=== PATIENT | female | born 1985 | race Caucasian/White ===

== ENCOUNTER → 2021-04-08 15:40 | Outpatient (CLI) | payer OTHER, SELFPAY ==
--- NOTE | ~2021-04-08 | US_ITS ---
EXAMINATION: US thyroid DATE: 04/08/2021 15:56 INDICATION: Euthyroid sick syndrome. TECHNIQUE: Multiple ultrasound images of the thyroid were obtained. COMPARISON: None. FINDINGS: The right thyroid lobe measures 4.9 x 1.7 x 1.5 cm. The left thyroid lobe measures 4.4 x 1.5 x 1.6 c m. The thyroid demonstrates coarsened echotexture and increased vascularity. In the left thyroid lobe , there is a 1.4 cm predominantly solid, isoechoic, [id number] nodule with smooth margin without echogenic foci (TI-RADS TR3). IMPRESSION: 1. Heterogeneous, hypervascular thyroid, likely chronic lymphocytic (Alexandru) thyroiditis. 2. Left thyroid nodule, likely not clinically significant. No follow-up is needed. Reviewed, dictated and finalized at location A. CLEANER IMPRESSION: 1. Heterogeneous, hypervascular thyroid, likely chronic lymphocytic (Alexandru) thyroiditis. 2. Left thyroid nodule, likely not clinically significant. No follow-up is need ed.
== END ==
PROVIDERS: PCP Physician Assistant; Visit Provider Physician Assistant
DX: E07.81 Sick-euthyroid syndrome (principal)
CPT/HCPCS: 76536

== ENCOUNTER → 2021-05-29 08:00 | Outpatient (CLI) | payer OTHER, SELFPAY ==
[2021-05-29 21:12] LABS: SARS-CoV-2 RNA PCR Negative
== END ==
PROVIDERS: PCP Physician Assistant; Visit Provider Physician Assistant
DX: R68.89 Other general symptoms and signs (principal); Z20.822 Contact with and (suspected) exposure to COVID-19
CPT/HCPCS: C9803; U0003; U0005

== ENCOUNTER 2022-09-29 07:29 | Outpatient (CLI) | payer OTHER, SELFPAY ==
--- NOTE | ~2022-09-29 | US_ITS ---
EXAMINATION: US thyroid DATE: 09/29/2022 08:11 INDICATION: Thyroid nodule. TECHNIQUE: Multiple ultrasound images of the thyroid were obtained. COMPARISON: Ultrasound 04/08/2021 FINDINGS: The right thyroid lobe measures 4.3 x 1.2 x 1.3 cm. The left thyroid lobe measures 4.0 x 1.4 x 1.5 c m. The thyroid is diffusely hypervascular. In the left thyroid lobe, there is a 13 mm predominantly s olid, isoechoic, wider than tall nodule with smooth margin without echogenic foci (TI-RADS TR3), stab le from 04/08/2021. IMPRESSION: 1. Stable thyroid nodule, likely not clinically significant. No follow-up is needed. Reviewed, dictated and finalized at location A. IMPRESSION: 1. Stable thyroid nodule, likely not clinically significant. No follow-up is ne eded.
== END 2022-09-29 07:30 ==
LOC: MICIMG 07:30
PROVIDERS: PCP Physician Assistant; Visit Provider Physician Assistant
DX: E04.1 Nontoxic single thyroid nodule (principal)
CPT/HCPCS: 76536

== ENCOUNTER → 2023-02-02 14:20 | Outpatient (CLI) | payer OTHER, SELFPAY ==
--- NOTE | ~2023-02-02 | XR_ITS ---
EXAMINATION: XR chest 2V 02/02/2023 14:36 INDICATION: Cough PROCEDURE: 2 view chest COMPARISON: No prior studies for comparison. FINDINGS: The lungs are clear. The cardiomediastinal silhouette is within normal limits. There are no pleural effusions. There is no pneumothorax suspected. IMPRESSION: 1: NO ACUTE CARDIOPULMONARY DISEASE. Reviewed, dictated and finalized at location L.
== END ==
PROVIDERS: PCP Physician Assistant; Visit Provider Physician Assistant
DX: R05.9 Cough, unspecified (principal)
CPT/HCPCS: 71046